=== PATIENT | male | born 1985 | race Caucasian/White ===

== ENCOUNTER 2019-11-01 19:15 | Emergency (ER) | payer SELFPAY ==
[~2019-11-01] VITALS: Ht 182.9 cm; Wt 86.4 kg
[2019-11-01 19:26] VITALS: BP 129/86
[2019-11-01 19:30] VITALS: TEMP 97.7
[2019-11-01] MEDS ORDERED: PREDNISONE20 MG PO (21:07)
[2019-11-01 21:34] VITALS: PULSE 89
== END 2019-11-01 21:30 | disposition home or self-care (01) ==
LOC: COL.ER 19:15
DX: S40.262A Insect bite (nonvenomous) of left shoulder, initial encounter (principal); L50.9 Urticaria, unspecified; F17.210 Nicotine dependence, cigarettes, uncomplicated; W57.XXXA Bitten or stung by nonvenomous insect and other nonvenomous arthropods, initial encounter
CPT/HCPCS: J1200; J2930; J7030; J7512